=== PATIENT | female | born 1970 | race Caucasian/White ===

== ENCOUNTER 2018-04-22 21:18 | Emergency (ER) | payer OTHER ==
[~2018-04-22] VITALS: Ht 170.2 cm; Wt 56.7 kg
[2018-04-22 21:30] VITALS: BP 128/80
[2018-04-22] MEDS ORDERED: Morphine Sulfate 4mg/ml Inj IVP ONE ×2 (21:30→23:30)
[2018-04-22] MEDS ORDERED: NS 1000ml 1,700 ML IVLG ONE (21:30)
[2018-04-22] MEDS ORDERED: Albuterol/Ipratropium 3ml neb HHN ONE (21:30)
[2018-04-22 22:00] LABS: HEMATOCRIT 48.4 % (37.0-47.0); HEMOGLOBIN 17.1 G/DL (12.0-16.0); MEAN CORPUSCULAR VOLUME 95 FL (80-99); PLATELET COUNT 367 K/UL (150-450); RED BLOOD COUNT 5.08 M/UL (4.20-5.40); RED CELL DISTRIBUTION WIDTH 10.5 % (11.6-14.8); WHITE BLOOD COUNT 16.5 K/UL (4.8-10.8)
[2018-04-22] MEDS ORDERED: Isovue-370 150ml vial INJ PRN (22:00)
[2018-04-22 22:08] LABS: LYMPHOCYTES % (AUTO) 7.8 % (20.0-45.0); MONOCYTES % (AUTO) 6.1 % (1.0-10.0); NEUTROPHILS % (AUTO) 85.4 % (45.0-75.0)
[2018-04-22 22:09] LABS: ANION GAP 14 mmol/L (5-15); BASOPHILS % (AUTO) 0.8 % (0.0-2.0); BLOOD UREA NITROGEN 13 mg/dL (7-18); CALCIUM 10.5 MG/DL (8.5-10.1); CARBON DIOXIDE 24 MMOL/L (21-32); CHLORIDE 101 MMOL/L (98-107); CREATININE 0.6 MG/DL (0.55-1.30); POTASSIUM 3.9 MMOL/L (3.5-5.1); SODIUM 139 MMOL/L (136-145)
[2018-04-22 22:23] LABS: ALANINE AMINOTRANSFERASE 18 U/L (12-78); ALBUMIN 4.5 G/DL (3.4-5.0); ALBUMIN/GLOBULIN RATIO 1.2 (1.0-2.7); ALKALINE PHOSPHATASE 84 U/L (46-116); ASPARTATE AMINO TRANSFERASE 15 U/L (15-37); BILIRUBIN,TOTAL 0.3 MG/DL (0.2-1.0); CREATINE KINASE 41 U/L (26-308)
[2018-04-22 23:02] LABS: INR 0.9 (0.9-1.1)
[2018-04-22] MEDS ORDERED: cefTRIAXone 1 GM in NS 55 ML IVPB ONE (23:30)
[2018-04-22] MEDS ORDERED: Azithromycin 250mg tab ORAL ONE (23:30)
[2018-04-22 23:36] VITALS: BP 120/74
--- NOTE | 2018-04-23 00:08 | Emergency Room Report ---
History of Present Illness General Chief Complaint: Dyspnea/Respdistress Source: Patient Present Illness [facility] This a 47-year-old female presents with chief complaint of right sided chest pain and short of breath. Onset today. For last 2 days she's been having coughing. She had a fever initially. Better now. The fever standpoint. Coughing with productive for sputum. Severe pain with coughing and inspiration. Pain is 10 out of 10. No radiation. No nausea no vomiting. Allergies: Coded Allergies: METOCLOPRAMIDE (Verified Allergy, Unknown, 04/22/18) Patient History Past Medical History: see triage record, old chart reviewed, psych hx - anxiety Past Surgical History: none Pertinent Family History: none Social History: Denies: smoking Last Menstrual Period: on period Now: No Immunizations: other Reviewed Nursing Documentation: PMH: Agreed; PSxH: Agreed Review of Systems Eye: Denies: eye pain, blurred vision ENT: Denies: ear pain, nose congestion, throat swelling Respiratory: Reports: cough, shortness of breath Cardiovascular: Reports: chest pain; Denies: palpitations Gastrointestinal: Denies: abdominal pain, diarrhea, nausea, vomiting Musculoskeletal: Denies: back pain, joint pain Skin: Denies: rash Neurological: Denies: headache, numbness Endocrine: Denies: increased thirst, increased urine Hematologic/Lymphatic: Denies: easy bruising All Other Systems: negative except mentioned in HPI Physical Exam Vital Signs Date Time Temp Pulse Resp B/P (MAP) Pulse Ox O2 Delivery O2 Flow Rate FiO2 04/22/18 21:20 98.1 96 18 140/88 94 Room Air 98.1 04/22/18 21:30 97 04/22/18 21:44 2.0 vitals normal Sp02 EP Interpretation: reviewed, normal General Appearance: well appearing, alert, moderate distress - from pain Head: normocephalic, atraumatic Eyes: bilateral eye PERRL, bilateral eye EOMI ENT: hearing grossly normal, normal pharynx Neck: full range of motion, supple, no meningismus Respiratory: chest non-tender, normal breath sounds, rhonchi - right lungs Cardiovascular #1: regular rate, rhythm, no murmur Gastrointestinal: normal bowel sounds, non tender, no mass, no organomegaly, no bruit, non-distended Musculoskeletal: back normal, gait/station normal, normal range of motion Neurologic: alert, oriented x3 Psychiatric: mood/affect normal Skin: warm/dry Medical Decision Making Diagnostic Impression: Primary Impression: Community acquired bacterial pneumonia ER Course She presents with right-sided chest pain and has pneumonia. No evidence of ACS , PE, dissection to name a few. No pneumothorax. Because of her pain, will transfer to [place] for further IV antibiotics and pain control. Antibiotic started here. Laboratory Tests Test 04/22/18 21:40 04/22/18 22:00 White Blood Count 16.5 K/UL (4.8-10.8) H Red Blood Count 5.08 M/UL (4.20-5.40) Hemoglobin 17.1 G/DL (12.0-16.0) H Hematocrit 48.4 % (37.0-47.0) H Mean Corpuscular Volume 95 FL (80-99) Mean Corpuscular Hemoglobin 33.8 PG (27.0-31.0) H Mean Corpuscular Hemoglobin Concent 35.4 G/DL (32.0-36.0) Red Cell Distribution Width 10.5 % (11.6-14.8) L Platelet Count 367 K/UL (150-450) Mean Platelet Volume 6.5 FL (6.5-10.1) Neutrophils (%) (Auto) 85.4 % (45.0-75.0) H Lymphocytes (%) (Auto) 7.8 % (20.0-45.0) L Monocytes (%) (Auto) 6.1 % (1.0-10.0) Eosinophils (%) (Auto) 0.0 % (0.0-3.0) Basophils (%) (Auto) 0.8 % (0.0-2.0) Urine Color Pending Urine Appearance Pending Urine pH Pending Urine Specific Porter Pending Urine Protein Pending Urine Glucose (UA) Pending Urine Ketones Pending Urine Occult Blood Pending Urine Nitrite Pending Urine Bilirubin Pending Urine Urobilinogen Pending Urine Leukocyte Esterase Pending Sodium Level 139 MMOL/L (136-145) Potassium Level 3.9 MMOL/L (3.5-5.1) Chloride Level 101 MMOL/L (98-107) Carbon Dioxide Level 24 MMOL/L (21-32) Anion Gap 14 mmol/L (5-15) Blood Urea Nitrogen 13 mg/dL (7-18) Creatinine 0.6 MG/DL (0.55-1.30) Estimat Glomerular Filtration Rate > 60 mL/min (>60) Glucose Level 107 MG/DL (74-106) H Lactic Acid Level 1.90 mmol/L (0.66-2.22) Calcium Level 10.5 MG/DL (8.5-10.1) H Total Bilirubin 0.3 MG/DL (0.2-1.0) Aspartate Amino Transf (AST/SGOT) 15 U/L (15-37) Alanine Aminotransferase (ALT/SGPT) 18 U/L (12-78) Alkaline Phosphatase 84 U/L (46-116) Total Creatine Kinase 41 U/L (26-308) Creatine Kinase MB 1.0 NG/ML (0.0-3.6) Creatine Kinase MB Relative Index 2.4 Troponin I 0.000 ng/mL (0.000-0.056) Total Protein 8.4 G/DL (6.4-8.2) H Albumin 4.5 G/DL (3.4-5.0) Globulin 3.9 g/dL Albumin/Globulin Ratio 1.2 (1.0-2.7) Human Chorionic Gonadotropin, Qual Negative Prothrombin Time 9.0 SEC (9.30-11.50) L Prothromb Time International Ratio 0.9 (0.9-1.1) Activated Partial Thromboplast Time 21 SEC (23-33) L D-Dimer 0.37 mg/L FEU (0.00-0.49) Lab Results Impression labs with elevated white EKG Diagnostic Results Rate: normal Rhythm: NSR ST Segments: no acute changes ASA given to the pt in ED: No Rhythm Strip Diag. Results Rhythm Strip Time: 00:06 EP Interpretation: yes Rate: 80 Rhythm: NSR, no PVC's, no ectopy Chest X-Ray Diagnostic Results Chest X-Ray Diagnostic Results : Chest X-Ray Ordered: Yes # of Views/Limited/Complete: 1 View Indication: Chest Pain EP Interpretation: Yes Interpretation: no effusion, no pneumothorax, other - RML infiltrate Impression: Other - RML infiltrate Electronically Signed by: Russell Thomas MD CT/MRI/US Diagnostic Results CT/MRI/US Diagnostic Results : Imaging Test Ordered: CT chest Impression Read by radiologist. RML infiltrate. no PE, PTX. Last Vital Signs Date Time Temp Pulse Resp B/P (MAP) Pulse Ox O2 Delivery O2 Flow Rate FiO2 04/22/18 23:36 100.4 99 27 120/74 97 Nasal Cannula 2.0 100.4 04/22/18 21:30 97 Status: improved Disposition: XFER SHT-TRM HOSP Condition: Stable Referrals: [facility] (PCP) RUSSELL THOMAS M.D. April 23, 2018 00:08
[2018-04-23] MEDS ORDERED: Ketorolac 30mg Inj IV ONE (00:15)
[2018-04-23] MEDS ORDERED: Norco 5mg/325mg tab ORAL ONE (00:15)
[2018-04-23] MEDS ORDERED: Morphine Sulfate 4mg/ml Inj IVP ONE (00:45)
[2018-04-23] MEDS ORDERED: Albuterol ud Inhalation HHN ONE (00:45)
[2018-04-23 01:37] VITALS: BP 122/76
--- NOTE | 2018-04-23 09:29 | Diagnostic Imaging Report ---
Indication: Chest pain Technique: Continuous helical transaxial imaging of the chest was obtained from the thoracic inlet to the upper abdomen during rapid intravenous contrast administration. Arterial phase of enhancement obtained. Coronal 2-D reformats were also obtained and maximum intensity projection images in multiple planes. Study obtained in a Siemens sensation [address] Automatic Exposure Control was utilized. Total Dose length Product (DLP): 484.[address] Dose Index Volume (CTDIvol): 14.74 mGy Comparison: None Findings: There is a focus of airspace disease at the right lung base in the the medial segment of the middle lobe consistent with pneumonia. The lungs are clear otherwise. There is no evidence of pulmonary embolus, aortic dissection or aneurysm. The heart is unremarkable. There is no pleural or pericardial effusion. There is a small hiatal hernia. Upper abdomen is unremarkable. IMPRESSION: Right middle lobe pneumonia.. [facility] has communicated the preliminary results to the Emergency Department. Their findings are largely concordant with this report. The CT scanner at [facility] is accredited by the [employer] and the scans are performed using dose optimization techniques as appropriate to a performed exam including Automatic Exposure control.
--- NOTE | 2018-04-23 11:29 | Diagnostic Imaging Report ---
Indication: Dyspnea Comparison: None A single view chest radiograph was obtained. Findings: There is a questionable mild infiltrate at the right lung base. Correlate clinically. Follow-up suggested. Heart size is normal. Bones are unremarkable. IMPRESSION: Questionable mild right basal pneumonia
--- NOTE | 2018-04-23 16:24 | Cardiology Report ---
APPROVED REPORT EKG Measurement Heart [id number] Normal sinus rhythm Possible Left atrial enlargement Nonspecific ST and T wave abnormality Abnormal ECG
== END 2018-04-23 02:00 | disposition short-term general hospital (02) ==
LOC: MERGE 21:55 → EMR 21:55
DX: J15.9 Unspecified bacterial pneumonia (principal)
CPT/HCPCS: 36415; 71045; 71275; 80053; 82550; 82553; 83605; 84484; 84703; 85025; 85379; 85610; 85730; 87040; 93005; 94640; 94664; 96361; 96374; 96375; 99285; J0696; J1885; J2270; J2405; Q9967; J7620